=== PATIENT | female | born 1980 ===

== ENCOUNTER 2017-02-11 19:41 | Emergency (ER) | payer OTHER, MEDICAID ==
[2017-02-11 21:08] LABS: RBC URINE 22 /hpf (0-3); URINE BACTERIA FEW (<OCC); URINE BILIRUBIN NEGATIVE (NEGATIVE); URINE BLOOD 3+ (NEGATIVE); URINE COLOR Yellow (YELLOW); URINE GLUCOSE (UA) NORMAL (Normal); URINE KETONE NEGATIVE (NEGATIVE); URINE LEUKOCYTE ESTERASE 1+ Leu/uL (Negative); URINE PROTEIN NEGATIVE (NEGATIVE); URINE UROBILINOGEN NORMAL mg/dL (0.2-1.0); WBC URINE 29 /hpf (0-5)
[2017-02-11 21:12] VITALS: O2SAT 100
--- NOTE | 2017-02-11 21:52 | C.PDOC ---
History Of Present Illness 36 y/o female presents to emergency department with complaints of mild left lower quadrant abdominal pain and increasing left lower back pain for the last 2 days. Patient states last menstrual period was in December, noting she a took home test 2 days ago that was positive. Patient is increasingly concerned due to history of ectopic 2 years ago, treated with methotrexate, during which she had similar pain. Patient also reports mild brownish vaginal discharge onset today. Denies fever, chills, nausea, vomiting, urinary symptoms, or other complaints. Time Seen by Provider: 02/11/17 20:42 Chief Complaint (Nursing): Back Pain History Per: Patient History/Exam Limitations: no limitations Onset/Duration Of Symptoms: Days Current Symptoms Are (Timing): Still Present Quality Of Discomfort: "Pain" Associated Symptoms: None Recent travel outside of the [place]: No Past Medical History Reviewed: Historical Data, Nursing Documentation, Vital Signs Vital Signs: Last Vital Signs Temp 98.4 F 02/11/17 21:12 Pulse 98 H 02/11/17 21:12 Resp 20 02/11/17 21:12 BP 134/78 02/11/17 21:12 Pulse Ox 100 02/11/17 21:54 - Medical History PMH: Asthma, Gastritis, Rheumatoid Arthritis Surgical History: Tonsillectomy - [facility] Procedures LAPAROSCOPIC REPAIR UMBILICAL HERNIA W GRAFT OR PROSTHESIS (05/14/14) Family History: States: Unknown Family Hx - Social History Hx Alcohol Use: No Hx Substance Use: No Review Of Systems Except As Marked, All Systems Reviewed And Found Negative. Constitutional: Negative for: Fever, Chills Respiratory: Negative for: Shortness of Breath Gastrointestinal: Positive for: Abdominal Pain. Negative for: Nausea, Vomiting Genitourinary: Positive for: Vaginal Bleeding Musculoskeletal: Positive for: Back Pain Skin: Negative for: Rash Neurological: Negative for: Headache, Dizziness Physical Exam - Physical Exam Appears: Non-toxic, No Acute Distress Skin: Normal Color, Warm, Dry Head: Atraumatic, Normacephalic Cardiovascular: Rhythm Regular Respiratory: No Rales, No Rhonchi, No Wheezing Gastrointestinal/Abdominal: Soft, No Tenderness, No Guarding, No Rebound Neurological/Psych: Oriented x3, Normal Speech, Normal Cognition ED Course And Treatment O2 Sat by Pulse Oximetry: 100 (RA) Pulse Ox Interpretation: Normal - CT Scan/US US Other Rad Studies (CT/US): Radiology Report Reviewed (emptu uterus, complex left cust and probable rt cyst) Progress Note: Beta quant and OB ultrasound ordered. Medical Decision Making Medical Decision Making: Case discussed with dr Domingo, recommended repeat quant in few day Results and need for follow up discussed with pt, as well ad possibility of ectopic Pt understands and will return sunday for blood testing Disposition - Disposition Disposition: HOME/ ROUTINE Disposition Time: 23:49 Condition: GOOD Additional Instructions: REturn to the ED on tuesday 02/13 to have a repeat blood test Return to the ED promptly for any new or worsening symptoms Instructions: Threatened Miscarriage (ED) - Clinical Impression Clinical Impression: Threatened - Scribe Statement The provider has reviewed the documentation as recorded by the Scriblucio Nagel All medical record entries made by the Scribe were at my direction and personally dictated by me. I have reviewed the chart and agree that the record accurately reflects my personal performance of the history, physical exam, medical decision making, and the department course for this patient. I have also personally directed, reviewed, and agree with the discharge instructions and disposition.
[2017-02-12 00:51] VITALS: BP 126/79; PULSE 90; RESP 16; TEMP 98.9
--- NOTE | 2017-02-12 08:45 | US ---
HISTORY: 8 wks, LLQ pain, Hx ectopic COMPARISON: None available. TECHNIQUE: Transvaginal pelvic ultrasound was performed. FINDINGS: UTERUS: Measures 9.0 x 5.2 x 5.5 cm. Anteverted, normal in size and appearance. No fibroid or other mass lesion seen. ENDOMETRIUM: Measures 18 mm in diameter. Thickened but otherwise normal in appearance. No evidence of intrauterine gestation CERVIX: No cervical abnormality identified. RIGHT OVARY: Measures 4.0 x 2.1 x 2.6 cm. There is a 2.2 x 1.6 x 1.5 cm hypoechoic lesion. Normal flow. LEFT OVARY: Measures 3.2 x 2.0 x 2.8 cm. There is a 1.4 x 1.1 x 1.1 cm heterogeneous lesion. Normal flow. FREE FLUID: No significant free fluid noted. OTHER FINDINGS: None. IMPRESSION: 1. No evidence of intrauterine gestation. 2. 1.4 cm heterogeneous complex lesion in the left ovary. Although this finding could represent complex cyst, ectopic cannot be entirely excluded. Clinical and ultrasound follow-up is advised. 3. 2.2 cm cyst in the right ovary. A preliminary report was provided by [facility].
== END 2017-02-12 00:15 | disposition home or self-care (01) ==
LOC: C.ER 19:41
DX: O20.0 Threatened abortion (principal); Z3A.00 Weeks of gestation of pregnancy not specified

== ENCOUNTER 2017-02-15 15:05 | Emergency (ER) | payer OTHER, MEDICAID ==
[2017-02-15 15:16] VITALS: RESP 18
--- NOTE | 2017-02-15 16:52 | C.PDOC ---
History Of Present Illness <Lacho Virgen - Last Filed: 02/15/17 19:41> <Sheeba Antunez - Last Filed: 02/15/17 20:46> 36 yr old female presents to the ER for repeat HCG BETA Quant. Patient is a [id number] (MTX 1 yr ago) On 02/11 the BETA Quant was 35 and 02/13 the BETA Quant was 70. Patient reports she is having menstrual like bleeding that is general expeditor than her usual MP. Patient denies fever, chills, nausea, vomiting, abdominal pain, diarrhea, dysuria, back pain, weakness or numbness. (Lacho Virgen) History Per: Patient History/Exam Limitations: no limitations Onset/Duration Of Symptoms: Days <Lacho Virgen - Last Filed: 02/15/17 19:41> <Sheeba Antunez - Last Filed: 02/15/17 20:46> Time Seen by Provider: 02/15/17 15:29 Chief Complaint (Nursing): Medical Clearance Past Medical History Reviewed: Historical Data, Nursing Documentation, Vital Signs - Medical History PMH: Anemia, Asthma, Gastritis, Rheumatoid Arthritis Surgical History: Tonsillectomy Family History: States: No Known Family Hx - Social History Hx Alcohol Use: No Hx Substance Use: No - Immunization History Hx Tetanus Toxoid Vaccination: No Hx Influenza Vaccination: No Hx Pneumococcal Vaccination: No <Lacho Virgen - Last Filed: 02/15/17 19:41> Review Of Systems Except As Marked, All Systems Reviewed And Found Negative. Constitutional: Negative for: Fever, Chills Gastrointestinal: Negative for: Nausea, Vomiting, Abdominal Pain, Diarrhea Genitourinary: Negative for: Dysuria Musculoskeletal: Negative for: Back Pain Neurological: Negative for: Weakness, Numbness <Lacho Virgen - Last Filed: 02/15/17 19:41> Physical Exam - Physical Exam Appears: Well, Non-toxic, No Acute Distress Skin: Warm, Dry Head: Atraumatic, Normacephalic Oral Mucosa: Moist Chest: Symmetrical, No Tenderness Cardiovascular: Rhythm Regular, No Murmur Respiratory: Normal Breath Sounds, No Rales, No Rhonchi, No Stridor, No Wheezing Gastrointestinal/Abdominal: Normal Exam, Soft, No Tenderness, No Guarding, No Rebound Back: Normal Inspection, No CVA Tenderness, No Paraspinal Tenderness Extremity: Normal ROM, No Swelling Neurological/Psych: Oriented x3, Normal Speech, Normal Motor, Normal Sensation <Lacho Virgen - Last Filed: 02/15/17 19:41> ED Course And Treatment - Laboratory Results Result Diagrams: 02/15/17 17:05 02/15/17 17:05 Lab Interpretation: Normal (Blood O+) Urine POC: Positive O2 Sat by Pulse Oximetry: 99 Pulse Ox Interpretation: Normal - CT Scan/US US - Transvaginal Other Rad Studies (CT/US): Read By Radiologist, Radiology Report Reviewed CT/US Interpretation: EXAM: US First Trimester, Transabdominal. CLINICAL HISTORY: 36 years old, female; Signs and symptoms; Other: Early preg, bleeding risin qhcg 93; Additional info: Early preg, bleeding, rising qhcg 93. TECHNIQUE: Real-time transabdominal obstetrical ultrasound of the maternal pelvis and a first trimester. with image documentation. COMPARISON: OB ultrasound 02/11/17. FINDINGS: Uterus: Uterus measures approximately 9.7 x 4.5 x 5.3 cm. Endometrium measures approximately. 4.3 mm in width. Right ovary: Right ovary measures approximately 2.8 x 1.9 x 2.5 cm. There are multiple small. follicles. There is intraovarian blood flow. Left ovary: Left ovary measures approximately 2.9 x 1.9 x 2.3 cm. There is a small hyperechoic. nodule in the left ovary, possibly a corpus luteum.There is expected blood flow on Doppler imaging. Adnexa: there are no adnexal masses. Cul-de-sac:There is no free fluid. IMPRESSION: No intrauterine or ectopic gestation. EXAM: US , Transvaginal. CLINICAL HISTORY: 36 years old, female; Signs and symptoms; Other: Early preg, bleeding risin qhcg 93; Additional info: Early preg, bleeding, rising qhcg 93. TECHNIQUE: Real-time transvaginal obstetrical ultrasound of the maternal pelvis and a first trimester . with image documentation. Transvaginal imaging was used for better evaluation of the fetus and. adnexa. EXAM DATE/TIME: 02/15/2017 4:43 PM. COMPARISON: PELVIS/ TRANSVAG US 02/11/2017 10:37:29 PM. FINDINGS: Uterus: Uterus measures approximate 8.4 x 4.9 x 5.9 cm. Endometrium measures approximately 9. mm in width. There is a nabothian cyst in the cervix. Right ovary: Right ovary measures approximately 3.88 1.95 x 3.30 cm.There is expected blood flow. on Doppler imaging there is a solid hypoechoic lesion in the right ovary, 1.3 x 1.6 cm. Left ovary: Left ovary measures roughly 2.78 x 1.85 x 2.32 cm. There is a 1.2 x 0.8 cm corpus. luteum. There is expected blood flow on Doppler imaging. Adnexa: There are no adnexal masses. Cul-de-sac: There is no free fluid. IMPRESSION: No intrauterine or ectopic gestation identified; possible hemorrhagic right ovarian. cyst; left corpus luteum Progress Note: 1830: d/w Dr. Dowd- SEXUAL HEALTH PHYSICIAN Data Manager- pending US reports but relayed probable positive findings. Dr. Dowd to come to [facility] to eval and rehabilitation counselor pt. <Lacho Virgen - Last Filed: 02/15/17 19:41> - Laboratory Results Result Diagrams: 02/15/17 17:05 02/15/17 17:05 <Sheeba Antunez - Last Filed: 02/15/17 20:46> Medical Decision Making <Lacho Virgen - Last Filed: 02/15/17 19:41> <Sheeba Antunez - Last Filed: 02/15/17 20:46> Medical Decision Making: PLAN: * US - Transvaginal * CBC * HCG Quant rising SLOWER than expected in IUP, no IUP on vag US (prelim) * Results of US and OB consult pending. (Lacho Virgen) 832 pm pt seen by Dr Aceves and sonogram results reviewed. Per Dr Aceves, pt may go home iwth bleeding and ectopic precautions, and to return to ED on Sat for repeat bhcg with tobacco dipper consult. message left for Dr Patterson. [address] Spencer; he agrees with plan for pt to return to ER on Sat for repeat bhcg. (Sheeba Antunez) Disposition <Lacho Virgen - Last Filed: 02/15/17 19:41> Discussed With : Edwar Samson Doctor Will See Patient In The: ED Counseled Patient/Family Regarding: Studies Performed, Diagnosis, Need For Followup - Disposition Disposition Time: 20:35 <Sheeba Antunez - Last Filed: 02/15/17 20:46> - Disposition Disposition: HOME/ ROUTINE Condition: STABLE Additional Instructions: Please return to ER on Sunday for repeat BHCG. Pelvic rest, nothing in vagina - no sex, no douching, no tampons. Return to ER sooner for any heavy bleeding, lightheadedness, abdpominal pain, passing, out, fainiting, or other concerns. Instructions: Threatened Miscarriage (ED) Forms: General Discharge Instructions Print Language: TURKMEN - Clinical Impression Clinical Impression: Threatened , Vaginal bleeding in - Scribe Statement The provider has reviewed the documentation as recorded by the Scribe <Lacho Virgen - Last Filed: 02/15/17 19:41> <Sheeba Antunez - Last Filed: 02/15/17 20:46> - Scribe Statement Simona Tse (Lacho Virgen) Provider Attestation: All medical record entries made by the Scribe were at my direction and personally dictated by me. I have reviewed the chart and agree that the record accurately reflects my personal performance of the history, physical exam, medical decision making, and the department course for this patient. I have also personally directed, reviewed, and agree with the discharge instructions and disposition. (Lacho Virgen)
[2017-02-15 17:21] LABS: BASO # 0.1 K/uL (0.0-0.2); BASO % 0.8 % (0.0-2.0); EOS # 0.1 K/uL (0.0-0.7); HEMATOCRIT 32.4 % (34.0-47.0); LYMPH # 1.7 K/uL (1.0-4.3); LYMPH % 24.4 % (20.0-40.0); MEAN CELL VOLUME 73.7 fL (81.0-99.0); MEAN CORPUSCULAR HGB CONC 31.2 g/dL (33.0-37.0); MEAN PLATELET VOLUME 8.3 fL (7.2-11.7); MONO # 0.5 K/uL (0.0-0.8); MONO % 7.7 % (0.0-10.0); NRBC % 0.1 % (0.0-2.0); RED CELL DISTRIBUTION WIDTH 18.3 % (11.5-14.5); WHITE BLOOD COUNT 6.8 K/uL (4.8-10.8)
[2017-02-15 17:24] LABS: CHLORIDE 100 mmol/L (98-107); POTASSIUM 3.6 mmol/L (3.6-5.2); SODIUM 137 mmol/L (132-148)
[2017-02-15 17:26] LABS: BILIRUBIN,TOTAL 0.5 mg/dL (0.2-1.3); GFR AFRICAN-AMERICAN > 60
[2017-02-15 17:27] LABS: ALB/GLOB RATIO 1.1 (1.0-2.1); ALKALINE PHOSPHATASE 80 U/L (38-126); ALT/SGPT 36 U/L (9-52); AST/SGOT 37 U/L (14-36); BLOOD UREA NITROGEN 12 mg/dL (7-17); CALCIUM 10.2 mg/dl (8.6-10.4); CARBON DIOXIDE 24 mmol/L (22-30); GLUCOSE,RANDOM 86 mg/dL (65-105); TOTAL PROTEIN 7.9 g/dL (6.3-8.3)
[2017-02-15 20:41] VITALS: BP 151/91; PULSE 94; TEMP 98.2; O2SAT 98
--- NOTE | 2017-02-16 08:54 | US ---
HISTORY: early preg, bleeding, rising QHCG 93 COMPARISON: None available. TECHNIQUE: Transabdominal and transvaginal FINDINGS: UTERUS: Measures 9.1 x 4.7 x 5.6 cm. Normal in size and appearance. No fibroid or other mass lesion seen. ENDOMETRIUM: Measures 7 mm in diameter. Unremarkable. CERVIX: No cervical abnormality identified. RIGHT OVARY: Measures 3.2 x 1.9 x 3.1 cm. Hypoechoic mass, 1.4 x 1.4 x 1.6 cm. This mass appears solid, with internal blood flow demonstrated on Doppler interrogation. Short interval followup transvaginal pelvic ultrasound examination is advised. Normal flow demonstrated within right ovary. . LEFT OVARY: Measures 2.8 x 1.9 x 2.3 cm. No solid mass. Normal flow. There is a rounded echogenic structure within the left ovary measuring 1.2 x 0.8 x 0.9 cm. This demonstrates posterior acoustic shadowing. This could represent a calcification. The possibility of a small dermoid tumor should be considered. FREE FLUID: No significant free fluid noted. OTHER FINDINGS: None. IMPRESSION: No intrauterine gestational sac identified. Hypoechoic solid mass in right ovary with internal blood flow. 1.4 cm diameter. Short interval followup with pelvic ultrasound examination is advised. . Possible left ovarian dermoid tumor, 1.2 cm. Preliminary interpretation of this examination was reported by [facility] at 7:24 p.m. on 02/15/2017. There is concurrence of this report with the preliminary interpretation.
== END 2017-02-15 20:51 | disposition home or self-care (01) ==
LOC: C.ER 15:05
DX: O20.0 Threatened abortion (principal); Z3A.00 Weeks of gestation of pregnancy not specified

== ENCOUNTER 2017-02-17 12:40 | Emergency (ER) | payer OTHER, MEDICAID ==
[2017-02-17 12:49] VITALS: TEMP 98.2; O2SAT 100
--- NOTE | 2017-02-17 14:02 | C.PDOC ---
History Of Present Illness 36 y/o female A1 presents to the ED for repeat beta-HCG secondary to potential threatened . Denies abdominal pain, fever, back pain, vomiting , diarrhea or trauma. Admits to scant vaginal bleeding. Time Seen by Provider: 02/17/17 13:02 Chief Complaint (Nursing): Medical Clearance History Per: Patient History/Exam Limitations: no limitations Severity: Mild Recent travel outside of the [place]: No Past Medical History Reviewed: Historical Data, Nursing Documentation, Vital Signs Vital Signs: Last Vital Signs Temp 98.2 F 02/17/17 12:46 Pulse 92 H 02/17/17 14:15 Resp 18 02/17/17 14:15 BP 119/73 02/17/17 14:15 Pulse Ox 100 02/17/17 14:58 - Medical History PMH: Anemia, Asthma, Gastritis, Rheumatoid Arthritis Surgical History: Tonsillectomy - [facility] Procedures LAPAROSCOPIC REPAIR UMBILICAL HERNIA W GRAFT OR PROSTHESIS (05/14/14) Family History: States: Unknown Family Hx - Social History Hx Alcohol Use: No Hx Substance Use: No - Immunization History Hx Tetanus Toxoid Vaccination: Yes Hx Influenza Vaccination: Yes Hx Pneumococcal Vaccination: Yes Review Of Systems Except As Marked, All Systems Reviewed And Found Negative. Constitutional: Negative for: Fever Gastrointestinal: Negative for: Vomiting, Abdominal Pain, Diarrhea Genitourinary: Positive for: Vaginal Bleeding (scant) Musculoskeletal: Negative for: Back Pain Physical Exam - Physical Exam Appears: Non-toxic, No Acute Distress Skin: Warm, Dry, No Rash Head: Atraumatic, Normacephalic Eye(s): bilateral: Normal Inspection Oral Mucosa: Moist Neck: Normal ROM, Supple Chest: Symmetrical Cardiovascular: Rhythm Regular, No Friction Rub, No Murmur Respiratory: Normal Breath Sounds, No Rales, No Rhonchi, No Wheezing Gastrointestinal/Abdominal: Soft, No Tenderness Extremity: Normal ROM Extremity: Bilateral: Atraumatic Neurological/Psych: Oriented x3, Normal Motor Gait: Steady ED Course And Treatment O2 Sat by Pulse Oximetry: 100 (room air) Pulse Ox Interpretation: Normal Medical Decision Making Medical Decision Making: Repeat Beta-HCG found to be 41; previous was 100 two days ago which is consistent with spontaneous miscarriage. Pt has appointment with OBGYN in 2 days , pt will follow up with OBGYN in 2 days without fail. Disposition - [facility]position [facility] Disposition: HOME/ ROUTINE Disposition Time: 13:59 Condition: FAIR Additional Instructions: Follow up with the OBGYN within 1-2 days. Return if worsened Instructions: Spontaneous Miscarriage (ED) Forms: Work Excuse - Clinical Impression Clinical Impression: Spontaneous miscarriage - PA / FUEL TECHNICIAN / Resident Statement MD/DO has reviewed & agrees with the documentation as recorded. - Scribe Statement The provider has reviewed the documentation as recorded by the Courtneyiblucio Paulino All medical record entries made by the Audrey were at my direction and personally dictated by me. I have reviewed the chart and agree that the record accurately reflects my personal performance of the history, physical exam, medical decision making, and the department course for this patient. I have also personally directed, reviewed, and agree with the discharge instructions and disposition.
[2017-02-17 14:24] VITALS: BP 119/73; PULSE 92; RESP 18
== END 2017-02-17 14:16 | disposition home or self-care (01) ==
LOC: C.ER 12:40
DX: O03.9 Complete or unspecified spontaneous abortion without complication (principal)